=== PATIENT | female | born 1960 | race Caucasian/White ===

== ENCOUNTER 2017-10-03 16:48 | Emergency (ER) | payer OTHER ==
[2017-10-03 16:55] VITALS: BP 129/59; PULSE 96; TEMP 97.9; BMI 25.3
[2017-10-03] MEDS ORDERED: IBUPROFEN 400 MG TABLET (FP) PO ONE ×2 (17:35→17:53)
--- NOTE | 2017-10-03 17:36 | PDOC ---
History of Present Illness - General Chief Complaint: Injury Stated Complaint: FALL INJURY Time Seen by Provider: 10/03/17 17:10 History Source: Patient Exam Limitations: Clinical Condition - History of Present Illness Initial Comments: 10/03/17 17:36 Patient with no significant past medical history presenting with complain of right knee, and left shoulder pain status post slip and fall at a supermarket while grocery shopping yesterday falling in the back. Patient reported she hits her buttocks when she fell and now has right knee pain, left shoulder and base of back of head/neck pains even though she did not hit any of these parts during the fall. Patient did not take anything for her pain. Patient denies hitting head, loss of consciousness or dizziness 10/03/17 17:40 10/03/17 17:47 Timing/Duration: 24 hours Past History - Past Medical History Allergies/Adverse Reactions: Allergies Allergy/AdvReac Type Severity Reaction Status Date / Time No Known Drug Allergies Allergy Verified 10/03/17 16:55 Home Medications: Ambulatory Orders Duloxetine HCl [Cymbalta -] 60 mg PO DAILY #0 capsule. 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) Disorders: No HTN: No Hypercholesterolemia: No Liver Disease: No Seizures: No Thyroid Disease: No - Surgical History Abdominal Surgery: No Appendectomy: Yes Cardiac Surgery: No Cholecystectomy: No Lung Surgery: No Neurologic Surgery: No Orthopedic Surgery: Yes (ARTHROSCOPY RIGHT KNEE) - Suicide/Smoking/Psychosocial Hx Smoking History: Never smoked Have you smoked in the past 12 months: No If you are a former smoker, when did you quit?: 2003 Hx Alcohol Use: Yes Drug/Substance Use Hx: No Substance Use Type: Alcohol Hx Substance Use Treatment: Yes Review of Systems - Review of Systems Able to Perform ROS?: Yes Is the patient limited Bulgarian proficient: No Constitutional: No: Chills, Diaphoresis, Fever, Loss of Appetite, Malaise, Night Sweats, Weakness, Weight Stable, Unintentional Wgt. Loss, Unexplained wgt Loss, Other HEENTM: No: Eye Pain, Blurred Vision, Tearing, Recent change in vision, Double Vision, Cataracts, Ear Pain, Ocular Prothesis, Ear Discharge, Nose Pain, Nose Congestion, Tinnitus, Nose Bleeding, Hearing Loss, Throat Pain, Throat Swelling , Mouth Pain, Dental Problems, Difficulty Swallowing, Mouth Swelling, Other Respiratory: No: Cough, Orthopnea, Shortness of Breath, SOB with Exertion, SOB at Rest, Stridor, Wheezing, Productive cough, Hemoptysis, Other Cardiac (ROS): No: Chest Pain, Edema, Irregular Heart Rate, Lightheadedness, Palpitations, Syncope, Chest Tightness, Other ABD/GI: No: Abdominal Distended, Abd. Pain w/ defecation, Blood Streaked Bowels , Constipated, Diarrhea, Difficulty Swallowing, Nausea, Poor Appetite, Poor Fluid Intake, Rectal Bleeding, Vomiting, Indigestion, Abdominal cramping, Tarry Stools, Other Musculoskeletal: Yes: See HPI, Joint Pain (right knee, left shoulder), Joint Swelling (right knee), Muscle Pain (left shoulder), Neck Pain. No: Muscle Weakness, Joint Stiffness Integumentary: No: Bruising, Change in Color, Change in Hair/Nails, Dryness, Erythema, Flushing, Lesions, Lumps, Pallor, Pruritus, Rash, Sweating, Other Neurological: No: Headache, Numbness, Paresthesia, Pre-Existing Deficit, Seizure , Tingling, Tremors, Weakness, Unsteady Gait, Ataxia, Dizziness, Other All Other Systems: Reviewed and Negative *Physical Exam - Vital Signs Last Vital Signs Temp Pulse Resp BP Pulse Ox 97.9 F 96 H 18 129/59 99 10/03/17 16:51 10/03/17 16:51 10/03/17 16:51 10/03/17 16:51 10/03/17 16:51 - Physical Exam Comments: 10/03/17 17:41 GENERAL: Well developed, well nourished. Awake and alert. No acute distress. HEENT: Normocephalic, atraumatic. PERRLA, EOMI. No conjunctival pallor. Sclera are non- icteric. Moist mucous membranes. Oropharynx is clear. NECK: Supple. Full ROM. No JVD. Carotid pulses 2+ and symmetric, without bruits. No thyromegaly. No lymphadenopathy. CARDIOVASCULAR: Regular rate and rhythm. No murmurs, rubs, or gallops. Distal pulses are 2+ and symmetric. PULMONARY: No evidence of respiratory distress. Lungs clear to auscultation bilaterally. No wheezing, rales or rhonchi. ABDOMINAL: Soft. Non-tender. Non-distended. No rebound or guarding. No organomegaly. Normoactive bowel sounds. MUSCULOSKELETAL :mild tenderness over lateral collateral ligament of right knee. moderate swelling to medial and lateral collateral side of right knee. Negative anterior-posterior drawer tests of right knee.Normal range of motion at all joints. EXTREMITIES: mild edema around medial and lateral side of right knee.No cyanosis. No clubbing. No calf tenderness. SKIN: Warm and dry. Normal capillary refill. No rashes. No jaundice. NEUROLOGICAL: Alert, awake, appropriate. Cranial nerves 2-12 intact. No deficits to light touch and temperature in face, upper extremities and lower extremities. No motor deficits in the in face, upper extremities and lower extremities. Normoreflexic in the upper and lower extremities. Normal speech. Toes are down- going bilaterally. Gait is normal without ataxia. PSYCHIATRIC: Cooperative. Good eye contact. Appropriate mood and affect. General Appearance: Yes: Nourished, Appropriately Dressed, Mild Distress ED Treatment Course - RADIOLOGY Radiology Studies Ordered: Category Date Time Status KNEE 3 POS-RIGHT [RAD] Stat Radiology 10/03/17 17:29 Ordered SHOULDER-LEFT [RAD] Stat Radiology 10/03/17 17:29 Ordered SPINE-CERVICAL [RAD] Stat Radiology 10/03/17 17:28 Ordered Medical Decision Making - Medical Decision Making 10/03/17 17:45 Patient withpast medical history present with complain of right knee, left shoulder and neck pain status post fall and a supermarket yesterday. Patient reported pain in other places despite did not hit those places during the fall as she fell on in the lower buttocks but does not feel any pain over there. Mild swelling to medial lateral side of right knee with mild tenderness to the lateral collateral ligament of right knee. No other pathology seen on exam. Right knee x-ray ordered as well as left shoulder and cervical spine to rule out any pathology. Patient will be discharge on NSAIDs and knee brace if negative x-ray with orthopedics follow-up 10/03/17 18:14 x-rays of left knee shows severe arthritis changes in right knee which patient report already aware and was told she needs knee replacement. normal x-rays of left shoulder and cervical spine. Patient stable for home discharge on NSAIDS, knee brace and orthopedics follow-up. right knee wrapped with carlos bandage *DC/Admit/Observation/Transfer Diagnosis at time of Disposition: Arthritis of right knee Right knee sprain Qualifiers: Encounter type: initial encounter Involved ligament of knee: unspecified ligament Qualified Code(s): S83.91XA - Sprain of unspecified site of right knee , initial encounter Left shoulder strain Qualifiers: Encounter type: initial encounter Qualified Code(s): S46.912A - Strain of unspecified muscle, fascia and tendon at shoulder and upper arm level, left arm , initial encounter Neck muscle strain Qualifiers: Encounter type: initial encounter Qualified Code(s): S16.1XXA - Strain of muscle, fascia and tendon at neck level, initial encounter - Discharge Dispostion Disposition: HOME Condition at time of disposition: Stable Decision to Admit order: No - Prescriptions Prescriptions: Leg Brace [Knee Brace] 1 each MC DAILY #1 each Naproxen [Naprosyn] 500 mg PO BID PRN #20 tablet PRN Reason: knee pain - Referrals Referrals: Flaca Fuentes MD [Primary Care Provider] - Wayne Sands MD [Staff Physician] - - Patient Instructions Printed Discharge Instructions: DI for Osteoarthritis - Post Discharge Activity
== END 2017-10-03 18:18 | disposition home or self-care (01) ==
LOC: JERFT 16:48
DX: S83.91XA Sprain of unspecified site of right knee, initial encounter (principal); S46.912A Strain of unspecified muscle, fascia and tendon at shoulder and upper arm level, left arm, initial encounter; S16.1XXA Strain of muscle, fascia and tendon at neck level, initial encounter; M13.861 Other specified arthritis, right knee; W18.39XA Other fall on same level, initial encounter; Y93.89 Activity, other specified; Y92.512 Supermarket, store or market as the place of occurrence of the external cause
CPT/HCPCS: 72050-TC-FY; 73030-TC-LT-FY; 73562-TC-RT-FY; 99281-25

== ENCOUNTER 2018-01-28 09:38 | Day surgery (SDC) | payer OTHER ==
[2018-01-13 14:36] VITALS: BMI 25.2
[2018-01-28 14:24] VITALS: TEMP 98.1
[2018-01-28 15:07] VITALS: BP 131/78; PULSE 69
--- NOTE | 2018-02-01 12:34 | PATH ---
Surgical Pathology Report Patient Name: JANIE DORSEY [facility]. Rec. #: [id number] /Age/Gender: 1960 (Age: 57) / F Account: [id number] Location: [facility]-ENDOSCOPY Taken: 01/28/2018 Received: 01/31/2018 Reported: 02/01/2018 Physicians: Dillon Cobian M.D. Specimen(s) Received A: BX 2ND PORTION DUODENUM AND DUODENAL BULB B: BX ANTRUM C: BX DISTAL ESOPHAGUS D: BX MID ESOPHAGUS Clinical History Abnormal CT and distal esophageal thickening, dysphagia Postoperative diagnosis: Hiatal hernia, lap band, antral gastritis Final Diagnosis A. DUODENUM, SECOND PORTION AND BULB, BIOPSY: DUODENAL MUCOSA WITH FOCAL NONSPECIFIC CHRONIC INFLAMMATION. NO HISTOLOGIC EVIDENCE OF GLUTEN SENSITIVE ENTEROPATHY (CELIAC SPRUE) IDENTIFIED. B. STOMACH, ANTRUM, BIOPSY: SEVERE CHRONIC ACTIVE GASTRITIS. IMMUNOSTAIN FOR H. PYLORI IS POSITIVE (MANY ORGANISMS). C. DISTAL ESOPHAGUS, BIOPSY: SQUAMOUS EPITHELIUM WITH PAPILLOMATOSIS SUGGESTIVE OF REFLUX ESOPHAGITIS. NO INTESTINAL METAPLASIA IDENTIFIED (NO AGUILAR'S IDENTIFIED). D. MID ESOPHAGUS, BIOPSY: SQUAMOUS EPITHELIUM WITH PAPILLOMATOSIS SUGGESTIVE OF REFLUX ESOPHAGITIS. NO INTESTINAL METAPLASIA IDENTIFIED (NO AGUILAR'S IDENTIFIED). NO EOSINOPHILIC ESOPHAGITIS IDENTIFIED. Electronically Signed Markel Freeman M.D. Gross Description A. Received in formalin, labeled "biopsy second portion of duodenum and duodenal bulb" are 3 sánchez, irregular portions of soft tissue ranging from 0.4-0.6 cm. in greatest dimension. The specimens are submitted in toto in one cassette. B. Received in formalin, labeled "biopsy antrum" are 2 sánchez, irregular portions of soft tissue measuring 0.2 and 0.4 cm. in greatest dimension. The specimens are submitted in toto in one cassette. C. Received in formalin, labeled "biopsy distal esophagus" are 2 sánchez, irregular portions of soft tissue averaging 0.3 cm. in greatest dimension. The specimens are submitted in toto in one cassette. D. Received in formalin, labeled "biopsy midesophagus" are 3 sánchez, irregular portions of soft tissue ranging from 0.1-0.3 cm. in greatest dimension. The specimens are submitted in toto in one cassette. 01/31/201801/31/2018
== END 2018-01-28 15:15 | disposition home or self-care (01) ==
LOC: JASU-ENDO 09:38
PROVIDERS: ATTEND Internal Medicine Gastroenterology
PROC: 0DB68ZX Excision of Stomach, Via Natural or Artificial Opening Endoscopic, Diagnostic (ICD-10-PCS; 2018-01-28)
PROC: 0DB58ZX Excision of Esophagus, Via Natural or Artificial Opening Endoscopic, Diagnostic (ICD-10-PCS; principal; 2018-01-28 12:30)
DX: K25.9 Gastric ulcer, unspecified as acute or chronic, without hemorrhage or perforation (principal); K44.9 Diaphragmatic hernia without obstruction or gangrene; Z98.84 Bariatric surgery status
CPT/HCPCS: 88305-TC; 88342-TC

== ENCOUNTER 2020-08-16 06:08 | Inpatient (IN) | payer OTHER ==
[2020-08-16] MEDS ORDERED: BUPIVACAINE LIPOSOME/PF (EXPAREL) 266 MG/20 ML VIAL ONE (06:49)
[2020-08-16] MEDS ORDERED: SODIUM CHLORIDE 0.9% P/F 10 ML VIAL IJ ONE (06:49)
[2020-08-16] MEDS ORDERED: BUPIVACAINE HCL 50 ML ONE (06:49)
[2020-08-16] MEDS ORDERED: MIDAZOLAM HCL 2 MG/2 ML SINGLE DOSE VIAL ONE ×2 (06:49→08:57)
[2020-08-16 07:02] VITALS: BMI 25.5
[2020-08-16] MEDS ORDERED: VANCOMYCIN 1,000 MG VIAL (RESTRICTED TO ID ONLY) ONE (07:16)
[2020-08-16] MEDS ORDERED: SUCCINYLCHOLINE CHLORIDE 200 MG/10 ML SYRINGE ONE (07:41)
[2020-08-16] MEDS ORDERED: PROPOFOL 20 ML ONE (07:41)
[2020-08-16] MEDS ORDERED: TRANEXAMIC ACID 1000 MG/10 ML VIAL ONE ×2 (07:53→09:20)
[2020-08-16] MEDS ORDERED: ceFAZolin SODIUM 1 GM VIAL ONE (07:53)
[2020-08-16] MEDS ORDERED: DEXAMETHASONE SOD PHOSPHATE 4 MG/1 ML VIAL ONE ×2 (08:05→09:20)
[2020-08-16] MEDS ORDERED: ONDANSETRON 4 MG/2 ML VIAL ONE (08:05)
[2020-08-16] MEDS ORDERED: BUPIVICAINE 0.25%/MORPH PF/KETOROLAC - 51ML DISP.SYRINGE IA ONE ×3 (08:26→09:14)
[2020-08-16] MEDS ORDERED: ePHEDrine SULFATE 50 MG/1 ML AMPULE ONE (08:43)
[2020-08-16] MEDS ORDERED: ONDANSETRON 4 MG/2 ML VIAL IVPUSH PRN (09:08)
[2020-08-16] MEDS ORDERED: LACTATED RINGERS SOLUTION 1,000 ML IV SCH ×3 (09:15→10:15)
[2020-08-16] MEDS ORDERED: ENOXAPARIN NA (PORCINE) 40 MG/0.4 ML DISP.SYRIN SQ SCH (10:00)
[2020-08-16] MEDS ORDERED: ACETAMINOPHEN 1000 MG/100 ML VIAL (NON FORMULARY) IVPB ONE (10:00)
[2020-08-16] MEDS ORDERED: MAGNESIUM HYDROX 2400MG/30ML ORAL SUSPENSION 30 ML CUP PO PRN (10:05)
[2020-08-16] MEDS ORDERED: MAG HYDROX/AL HYDROX/SIMETH 30 ML UNIT-DOSE CUP PO PRN (10:05)
[2020-08-16] MEDS ORDERED: ACETAMINOPHEN INJECTION 100 ML IVPB ONE (10:17)
[2020-08-16] MEDS: oxyCODONE HCL 5 MG TABLET PO PRN ×3 (15:45→23:59)
[2020-08-16] MEDS: ACETAMINOPHEN 325 MG TABLET (FP) PO SCH ×2 (18:17→23:57)
[2020-08-16] MEDS: CEFAZOLIN 2 GM/D5W 2 GM/50 ML ML IVPB SCH (18:18)
[2020-08-16] MEDS: DOCUSATE SODIUM 100 MG CAPSULE (FP) PO SCH (21:14)
[2020-08-16] MEDS: GABAPENTIN 300 MG CAPSULE PO SCH (21:14)
[2020-08-17] MEDS: CEFAZOLIN 2 GM/D5W 2 GM/50 ML ML IVPB SCH (01:37)
[2020-08-17] MEDS: oxyCODONE HCL 5 MG TABLET PO PRN ×2 (03:40→08:53)
[2020-08-17] MEDS: ACETAMINOPHEN 325 MG TABLET (FP) PO SCH ×2 (06:00→11:40)
[2020-08-17 06:01] VITALS: TEMP 98.4
[2020-08-17] MEDS ORDERED: ENOXAPARIN NA (PORCINE) 40 MG/0.4 ML DISP.SYRIN SQ SCH (06:30)
[2020-08-17 08:18] LABS: BASO % 0.4 % (0-2.0); EOS % 0.6 % (0-4.5); HEMATOCRIT 32.1 % (32.4-45.2); HEMOGLOBIN 10.7 GM/dl (10.7-15.3); LYMPH % 22.4 % (8-40); MCH 30.8 pg (25.7-33.7); MCHC 33.5 g/dl (32.0-36.0); MEAN CELL VOLUME 91.9 fl (80-96); MEAN PLT VOLUME 7.8 fl (7.5-11.1); MONO % 8.3 % (3.8-10.2); NEUT % 68.3 % (42.8-82.8); PLATELET COUNT 332 10^3/uL (134-434); RBC 3.49 M/mm3 (3.60-5.2); RDW 12.9 % (11.6-15.6); WHITE BLOOD COUNT 8.3 K/mm3 (4.0-10.8)
[2020-08-17 08:25] LABS: ALBUMIN 3.3 g/dl (3.4-5.0); BILIRUBIN,TOTAL 0.4 mg/dl (0.2-1); CALCIUM 8.9 mg/dl (8.5-10); MAGNESIUM 1.9 mg/dL (1.8-2.4); TOT PROT 6.1 g/dl (6.4-8.2)
[2020-08-17] MEDS: GABAPENTIN 300 MG CAPSULE PO SCH (09:26)
[2020-08-17] MEDS: DOCUSATE SODIUM 100 MG CAPSULE (FP) PO SCH (09:27)
[2020-08-17 09:48] VITALS: BP 110/64; PULSE 66
[2020-08-17] MEDS ORDERED: DULoxetine HCL 30 MG CAPSULE.DR PO SCH (10:00)
[2020-08-17] MEDS ORDERED: PANTOPRAZOLE 40 MG TABLET PO SCH ×2 (10:00)
[2020-08-17] MEDS ORDERED: MULTIVITAMINS (DAILY MVI) TABLET (FP) PO SCH (10:00)
[2020-08-17] MEDS ORDERED: POLYETHYLENE GLYCOL (HEALTHYLAX) 3350 17 GM PACKET PO SCH (10:00)
== END 2020-08-17 11:56 | disposition home or self-care (01) | DRG 302 ==
LOC: FM/S 06:08
PROVIDERS: ADMIT Orthopaedic Surgery; ATTEND Orthopaedic Surgery
PROC: 0SRC0J9 Replacement of Right Knee Joint with Synthetic Substitute, Cemented, Open Approach (ICD-10-PCS; principal; 2020-08-16 08:10)
DX: M17.11 Unilateral primary osteoarthritis, right knee (principal); I10 Essential (primary) hypertension; E78.5 Hyperlipidemia, unspecified; F32.9 Major depressive disorder, single episode, unspecified; G62.9 Polyneuropathy, unspecified; G89.29 Other chronic pain; Z85.43 Personal history of malignant neoplasm of ovary; Z98.84 Bariatric surgery status
CPT/HCPCS: 36415; 73560-TC-RT-FY; 80048; 80053; 83735; 85025; 88305-TC; 88311-TC; 94760; 97010-GP; 97116-GP; 97161-GP; J0131

== ENCOUNTER 2022-01-28 04:46 | Day surgery (SDC) | payer OTHER ==
[2022-01-26 16:24] VITALS: BMI 24.6
[2022-01-28 11:07] VITALS: TEMP 98.4
[2022-01-28 11:37] VITALS: BP 110/64; PULSE 58; RESP 15
== END 2022-01-28 11:55 | disposition home or self-care (01) ==
LOC: JASU-ENDO 04:46
PROVIDERS: ATTEND Internal Medicine Gastroenterology
PROC: 0DBL8ZX Excision of Transverse Colon, Via Natural or Artificial Opening Endoscopic, Diagnostic (ICD-10-PCS; 2022-01-28)
PROC: 0DBP8ZX Excision of Rectum, Via Natural or Artificial Opening Endoscopic, Diagnostic (ICD-10-PCS; principal; 2022-01-28 10:00)
DX: Z12.11 Encounter for screening for malignant neoplasm of colon (principal); D12.8 Benign neoplasm of rectum; D12.3 Benign neoplasm of transverse colon; K64.8 Other hemorrhoids; K59.00 Constipation, unspecified
CPT/HCPCS: 88305-TC